=== PATIENT | male | born 1965 | race Caucasian/White ===

== ENCOUNTER → 2017-01-08 | Outpatient (CLI) | payer MEDICARE, MEDICAID ==
[~2017-01-08] MED LIST: AMOXICILLIN500 MG PO; AMOXIL500 MG PO; ANAPROX DS550 MG PO; ANTIVERT/2525 MG PO; ANTIVERT25 MG PO; ATIVAN0.5 MG PO; ATIVAN1 MG PO; CLINDAMYCIN150 MG PO; FLEXERIL10 MG PO; HYDROXYZINE PAM50 MG PO; KEPPRA1000 MG PO; KEPPRA250 MG PO; MEDROL DOSEPAK4 MG PO; MOTRIN800 MG PO; NAPROSYN500 MG PO; NKHM; PEN-VEE K500 MG PO; PEPCID20 MG PO; QUETIAPINE FUMA25 M2 PO; REMERON30 M1 PO; RISPERDAL4 M1 PO; RISPERIDONE4 MG PO; TRAMADOL HCL50 MG PO; TRAZODONE100 MG PO; VISTARIL; VISTARIL50 MG PO; VOLTAREN50 M1 PO; ZOLOFT100 MG PO
== END | disposition home or self-care (01) ==
LOC: RAD 09:59
DX: M43.17 Spondylolisthesis, lumbosacral region (principal); M47.896 Other spondylosis, lumbar region

== ENCOUNTER 2023-10-16 11:13 | Emergency (ER) | payer OTHER, MEDICAID ==
[~2023-10-16] VITALS: Ht 172.7 cm; Wt 67.1 kg
[2023-10-16] MEDS ORDERED: MG-AL HYDROXIDE/SIMETICONE 30 ML UDC PO STA (11:37)
[2023-10-16] MEDS ORDERED: Dicyclomine Hydrochloride 20 MG/10 ML OSYR PO STA (11:37)
[2023-10-16] MEDS ORDERED: Lidocaine Hydrochloride 15 ML UDC PO STA (11:37)
[2023-10-16 11:49] LABS: HEMATOCRIT 44.1 % (42.0-52.0); MANUAL DIFF REFLEX YES; MEAN CELL VOLUME 91.7 fl (80.0-94.0); MEAN CORPUSCULAR HGB 31.2 pg (27.0-31.0); MEAN PLATELET VOLUME 9.2 fl (9.6-12.3); PLATELET COUNT AUTOMATED 333 10*3/uL (130-400); RED BLOOD COUNT 4.81 10*6/uL (4.50-5.90); RED CELL DISTRI WIDTH 15.1 % (0-14.5); WHITE BLOOD COUNT 27.1 10*3/uL (4.8-10.8)
[2023-10-16 12:07] LABS: BURR CELLS FEW; PLATELET SUFFICIENCY NORMAL (NORMAL); POLYCHROMASIA SLIGHT; ROULEAUX SLIGHT; TARGET CELLS FEW; TOTAL CELLS COUNTED 100 #CELLS
[2023-10-16 12:10] LABS: ALKALINE PHOSPHATASE 102 U/L (46-116); BUN 6 mg/dl (9-23); CHLORIDE 98 mmol/L (98-107); LIPASE 26 U/L (12-53); POTASSIUM 3.8 mmol/L (3.4-5.1); SGPT/ALT 7 U/L (5-49); TOTAL PROTEIN 7.1 gm/dL (6.0-8.0)
[2023-10-16 12:23] LABS: BILIRUBIN Negative (Negative); BLOOD 2+ (Negative); CLARITY Clear (Clear); COLOR Dark Yellow (Yellow); GLUCOSE Negative (Negative); KETONE 1+ (Negative); LEUKO ESTERASE Trace (Negative); NITRITE Negative (Negative); PH 6.5 (4.5-8.0); SPECIFIC GRAVITY 1.025 (1.001-1.030)
[2023-10-16 12:30] LABS: MUCOUS 1+; RBC TNTC rbc/hpf (0-2)
[2023-10-16] MEDS ORDERED: Piperacillin Sodium/Tazobact 50 ML IV ONE (14:45)
== END 2023-10-16 15:51 | disposition short-term general hospital (02) ==
LOC: ED 11:13
PROVIDERS: Physician Assistant Medical
DX: K63.1 Perforation of intestine (nontraumatic) (principal); F31.9 Bipolar disorder, unspecified; F10.10 Alcohol abuse, uncomplicated; F13.10 Sedative, hypnotic or anxiolytic abuse, uncomplicated; F41.9 Anxiety disorder, unspecified

== ENCOUNTER 2023-10-21 14:50 | Emergency (ER) | payer MEDICARE ==
[~2023-10-21] VITALS: Ht 152.4 cm; Wt 63.5 kg
[2023-10-21] MEDS ORDERED: SODIUM CHLORIDE 0.9% 1,000 ML IV ONE ×2 (14:55→16:10)
[2023-10-21] MEDS ORDERED: IOHEXOL 300 MG/ML 100 ML VIAL IV ONE (15:05)
[2023-10-21 15:27] LABS: HEMATOCRIT 44.1 % (42.0-52.0); MEAN CELL VOLUME 92.8 fl (80.0-94.0); MEAN CORPUSCULAR HGB 30.9 pg (27.0-31.0); MEAN CORPUSCULAR HGB CONC 33.3 g/dl (33.0-37.0); MEAN PLATELET VOLUME 9.9 fl (9.6-12.3); PLATELET COUNT AUTOMATED 360 10*3/uL (130-400); RED BLOOD COUNT 4.75 10*6/uL (4.50-5.90); RED CELL DISTRI WIDTH 15.2 % (0-14.5); WHITE BLOOD COUNT 8.5 10*3/uL (4.8-10.8)
[2023-10-21 15:28] LABS: MANUAL DIFF REFLEX YES
[2023-10-21 15:38] LABS: ACT PARTIAL THROMBO TIME 28.8 SECONDS (20.0-32.1)
[2023-10-21 15:51] LABS: ALKALINE PHOSPHATASE 94 U/L (46-116); ATYPICAL LYMPHS 1 % (0-0); BUN < 5 mg/dl (9-23); CHLORIDE 98 mmol/L (98-107); ETHYL ALCOHOL < 3.0 mg/dl (<3); LIPASE 22 U/L (12-53); PLATELET SUFFICIENCY NORMAL (NORMAL); POTASSIUM 3.2 mmol/L (3.4-5.1); SGPT/ALT 8 U/L (5-49); TOTAL CELLS COUNTED 100 #CELLS; TOTAL PROTEIN 6.4 gm/dL (6.0-8.0)
[2023-10-21 15:52] LABS: BURR CELLS FEW
[2023-10-21] MEDS ORDERED: Piperacillin Sodium/Tazobact 50 ML IV ONE (17:40)
[2023-10-21] MEDS ORDERED: Vancomycin Hydrochloride 250 ML IV ONE (17:55)
== END 2023-10-21 20:45 | disposition short-term general hospital (02) ==
LOC: ED 14:50
PROVIDERS: Internal Medicine
DX: K57.20 Diverticulitis of large intestine with perforation and abscess without bleeding (principal); J18.9 Pneumonia, unspecified organism; R11.2 Nausea with vomiting, unspecified; F17.200 Nicotine dependence, unspecified, uncomplicated; Z79.899 Other long term (current) drug therapy

== ENCOUNTER → 2023-11-25 | Outpatient (CLI) | payer MEDICARE ==
[~2023-11-25] MED LIST changes: +IOHEXOL 300 MG/ML 100 ML VIAL IV ONE; +IOHEXOL 300 MG/ML 100 ML VIAL ONE
== END | disposition home or self-care (01) ==
LOC: CT 13:59
PROVIDERS: ATTEND Internal Medicine Infectious Disease
DX: N28.1 Cyst of kidney, acquired (principal); K57.20 Diverticulitis of large intestine with perforation and abscess without bleeding; J90 Pleural effusion, not elsewhere classified; E27.9 Disorder of adrenal gland, unspecified; M47.817 Spondylosis without myelopathy or radiculopathy, lumbosacral region

== ENCOUNTER → 2023-12-02 | Outpatient (CLI) | payer MEDICARE ==
[~2023-12-02] MED LIST changes: -IOHEXOL 300 MG/ML 100 ML VIAL IV ONE; -IOHEXOL 300 MG/ML 100 ML VIAL ONE
== END | disposition home or self-care (01) ==
LOC: WOUNDCARE 02:27
PROVIDERS: ATTEND Nurse Practitioner Family
DX: T81.89XA Other complications of procedures, not elsewhere classified, initial encounter (principal); S31.101A Unspecified open wound of abdominal wall, left upper quadrant without penetration into peritoneal cavity, initial encounter; K57.20 Diverticulitis of large intestine with perforation and abscess without bleeding; K94.00 Colostomy complication, unspecified; L92.8 Other granulomatous disorders of the skin and subcutaneous tissue; B37.2 Candidiasis of skin and nail; E43 Unspecified severe protein-calorie malnutrition; F17.209 Nicotine dependence, unspecified, with unspecified nicotine-induced disorders; Z68.20 Body mass index [BMI] 20.0-20.9, adult; Z86.718 Personal history of other venous thrombosis and embolism; Z79.899 Other long term (current) drug therapy; X58.XXXA Exposure to other specified factors, initial encounter; Y93.89 Activity, other specified; Y83.8 Other surgical procedures as the cause of abnormal reaction of the patient, or of later complication, without mention of misadventure at the time of the procedure; Y92.89 Other specified places as the place of occurrence of the external cause; Y99.8 Other external cause status

== ENCOUNTER → 2023-12-04 | Outpatient (CLI) | payer MEDICARE | END | disposition home or self-care (01) | LOC: WOUNDCARE 01:57 | PROVIDERS: ATTEND Nurse Practitioner Family | DX: T81.89XD Other complications of procedures, not elsewhere classified, subsequent encounter (principal); S31.101D Unspecified open wound of abdominal wall, left upper quadrant without penetration into peritoneal cavity, subsequent encounter; K57.20 Diverticulitis of large intestine with perforation and abscess without bleeding; K94.00 Colostomy complication, unspecified; L92.8 Other granulomatous disorders of the skin and subcutaneous tissue; B37.2 Candidiasis of skin and nail; E43 Unspecified severe protein-calorie malnutrition; F17.209 Nicotine dependence, unspecified, with unspecified nicotine-induced disorders; Z68.20 Body mass index [BMI] 20.0-20.9, adult; Z86.718 Personal history of other venous thrombosis and embolism; Z79.899 Other long term (current) drug therapy; X58.XXXD Exposure to other specified factors, subsequent encounter; Y83.8 Other surgical procedures as the cause of abnormal reaction of the patient, or of later complication, without mention of misadventure at the time of the procedure ==

== ENCOUNTER → 2023-12-09 | Outpatient (CLI) | payer MEDICARE | END | disposition home or self-care (01) | LOC: WOUNDCARE 00:08 | PROVIDERS: ATTEND Nurse Practitioner Family | DX: T81.89XD Other complications of procedures, not elsewhere classified, subsequent encounter (principal); K57.20 Diverticulitis of large intestine with perforation and abscess without bleeding; K94.00 Colostomy complication, unspecified; L92.8 Other granulomatous disorders of the skin and subcutaneous tissue; B37.2 Candidiasis of skin and nail; E43 Unspecified severe protein-calorie malnutrition; F17.209 Nicotine dependence, unspecified, with unspecified nicotine-induced disorders; Z68.20 Body mass index [BMI] 20.0-20.9, adult; Z86.718 Personal history of other venous thrombosis and embolism; Z79.899 Other long term (current) drug therapy; Y83.8 Other surgical procedures as the cause of abnormal reaction of the patient, or of later complication, without mention of misadventure at the time of the procedure ==

== ENCOUNTER → 2023-12-16 | Outpatient (CLI) | payer MEDICARE | END | disposition home or self-care (01) | LOC: WOUNDCARE 02:39 | PROVIDERS: ATTEND Nurse Practitioner Family | DX: T81.89XD Other complications of procedures, not elsewhere classified, subsequent encounter (principal); K57.20 Diverticulitis of large intestine with perforation and abscess without bleeding; K94.00 Colostomy complication, unspecified; L92.8 Other granulomatous disorders of the skin and subcutaneous tissue; B37.2 Candidiasis of skin and nail; E43 Unspecified severe protein-calorie malnutrition; F17.209 Nicotine dependence, unspecified, with unspecified nicotine-induced disorders; Z68.20 Body mass index [BMI] 20.0-20.9, adult; Z86.718 Personal history of other venous thrombosis and embolism; Z79.899 Other long term (current) drug therapy; Y83.8 Other surgical procedures as the cause of abnormal reaction of the patient, or of later complication, without mention of misadventure at the time of the procedure ==

== ENCOUNTER → 2024-02-11 | Outpatient (CLI) | payer MEDICARE | END | disposition home or self-care (01) | LOC: WOUNDCARE 01:33 | PROVIDERS: ATTEND Nurse Practitioner Family | DX: T81.89XD Other complications of procedures, not elsewhere classified, subsequent encounter (principal); K57.20 Diverticulitis of large intestine with perforation and abscess without bleeding; K94.00 Colostomy complication, unspecified; L92.8 Other granulomatous disorders of the skin and subcutaneous tissue; B37.2 Candidiasis of skin and nail; E43 Unspecified severe protein-calorie malnutrition; F17.209 Nicotine dependence, unspecified, with unspecified nicotine-induced disorders; Z68.20 Body mass index [BMI] 20.0-20.9, adult; Z86.718 Personal history of other venous thrombosis and embolism; Z79.899 Other long term (current) drug therapy; Y83.8 Other surgical procedures as the cause of abnormal reaction of the patient, or of later complication, without mention of misadventure at the time of the procedure ==

== ENCOUNTER → 2025-01-17 | Outpatient (CLI) | payer MEDICARE, OTHER | LOC: CT 01-12 11:00 | PROVIDERS: ATTEND Surgery | DX: E27.8 Other specified disorders of adrenal gland (principal); K57.20 Diverticulitis of large intestine with perforation and abscess without bleeding; Z93.2 Ileostomy status; R16.0 Hepatomegaly, not elsewhere classified; K59.00 Constipation, unspecified; I70.0 Atherosclerosis of aorta; M47.817 Spondylosis without myelopathy or radiculopathy, lumbosacral region ==